=== PATIENT | male | born 1980 | race Caucasian/White ===

== ENCOUNTER 2023-10-20 06:54 | Outpatient (CLI) | payer OTHER, SELFPAY ==
--- NOTE | ~2023-10-20 | US_ITS ---
Limited Abdominal Sonogram: Real-time sonographic imaging of the right upper quadrant was performed. Clinical History: Cirrhosis Findings: The liver appears echogenic, with no evidence of mass lesion or bile duct dilatation. Main portal vein demonstrates normal direction of flow. The gallbladder is absent, compatible prior saeed cystectomy. The common bile duct measures 6 mm. The visualized pancreas, aorta, and IVC are unremark able. Impression: Diffuse fatty infiltration of liver. Status post cholecystectomy. Reviewed, dictated and finalized at location . Impression: Diffuse fatty infiltration of liver. Status post cholecystectomy.
== END 2023-10-20 06:55 | disposition home or self-care (01) ==
LOC: CHSIMG 06:59
PROVIDERS: PCP Family Medicine; Visit Provider Family Medicine
DX: K74.60 Unspecified cirrhosis of liver (principal); K76.0 Fatty (change of) liver, not elsewhere classified; Z90.49 Acquired absence of other specified parts of digestive tract
CPT/HCPCS: 76705

== ENCOUNTER 2024-07-15 10:07 | Emergency (ER) | payer OTHER, SELFPAY ==
[2024-07-15 10:12] VITALS: BP 133/75; PULSE 64; RESP 18; TEMP 36.5; O2SAT 100
[2024-07-15 11:04] LABS: Basophils Percent Auto 0.3 % (0.2-1.2); Eosinophils Absolute Auto 0.1 K/mm3 (0-0.3); Eosinophils Percent Auto 1.4 % (0-4.4); Hematocrit 45.4 % (42.0-52.0); Hemoglobin 14.5 g/dL (14.0-18.0); Immature Granulocyte Absolute 0.01 K/mm3 (0.00-0.031); Immature Granulocyte Percent A 0.1 % (0-0.5); Lymphocytes Absolute Auto 1.46 K/mm3 (0.9-3.2); Mean Corpuscular HGB Conc 31.9 g/dl (32-36); Mean Corpuscular Hemoglobin 28.2 pg (26-34); Mean Corpuscular Volume 88.2 fl (80-100); Mean Platelet Volume 9.9 fl (7.4-10.4); Monocytes Absolute Auto 0.5 K/mm3 (0.1-0.6); Monocytes Percent Auto 7.8 % (2.6-8.5); Neutrophils Absolute Auto 4.8 K/mm3 (1.3-6.7); Neutrophils Percent Auto 69.4 % (45.5-73.1); Platelet Count Result 226 k/mm3 (150-375); Red Blood Count 5.15 M/mm3 (4.6-6.20); Red Cell Distribution Width 13.4 % (11.5-14.5)
[2024-07-15 11:07] LABS: Add Urine Microscopic? NO; Appearance Urine Clear (Clear); Bilirubin Urine Negative (Negative); Blood Urine Negative (Negative); Color Urine Yellow (Yellow); Glucose Urine UA Negative (Negative); Ketones Urine Negative (Negative); Leukocyte Esterase Ur Negative LEU/UL (Negative); Nitrate Urine Negative (Negative); Protein Urine Negative (Negative); Specific Grav Ur 1.024 (1.001-1.035); Urobilinogen Urine 0.2 mg/dL (<2.0); pH Urine 5.5 (5.0-9.0)
[2024-07-15 11:16] LABS: Alanine Aminotransferase 29 U/L (6-50); Albumin Level 4.4 g/dL (3.5-5.1); Alkaline Phosphatase 66 U/L (38-126); Anion Gap 6 mmol/L (4-12); Aspartate Amino Transferase 40 U/L (17-59); Bilirubin,Total 0.8 mg/dL (0.2-1.3); Blood Urea Nitrogen 22 mg/dL (9-20); Calcium 9.1 mg/dL (8.4-10.2); Carbon Dioxide 29 mmol/L (22-30); Chloride 103 mmol/L (98-107); Estimated CRCL calculation 134 ml/min; Estimated Glomerular Filt Rate > 60; Glucose 97 mg/dL (65-110); Potassium 3.7 mmol/L (3.4-5.0); Sodium 138 mmol/L (137-145)
[2024-07-15 11:19] LABS: Acetaminophen < 10 ug/mL (10-30); Ethanol < 10 mg/dL (<10); Salicylate < 1.0 mg/dL (2-20)
--- NOTE | 2024-07-15 11:26 | ED.PSYCH ---
HPI - Psych General Chief Complaint: Psychiatric Symptoms <FELI Rutledge Last Filed: 07/15/24 16:31> Stated Complaint: S/I <FELI Rutledge Last Filed: 07/15/24 16:31> Time Seen by Provider: 07/15/24 10:26 <FELI Rutledge Last Filed: 07/15/24 16:31> Source: patient <FELI Rutledge Last Filed: 07/15/24 16:31> Mode of arrival: EMS <FELI Rutledge Last Filed: 07/15/24 16:31> Limitations: no limitations <FELI Rutledge Last Filed: 07/15/24 16:31> History of Present Illness HPI Narrative: Patient is a 44-year-old male who presents the ED via EMS with report of suicidal ideation. Patient reports he has been feeling increasingly suicidal over the last few weeks. States he feels like he has no robbie in his life. States he has no one to turn to, no one to talk to or get help from. He is currently homeless. He did sleep on someone's couch a couple of days ago and has since developed an itchy red rash to his arms and legs and trunk. He does report that he attempted to take his life a few months ago by overdosing on heart medication, but was not evaluated at a hospital at that time. He does not currently see a psychiatrist or counselor. Is not currently on any mental health medications. Denies SHELLIE AVVin. <FELI Rutledge Last Filed: 07/15/24 16:31> Related Data Allergies/Adverse Reactions: Allergies Allergy/AdvReac Type Severity Reaction Status Date / Time No Known Allergies Allergy Verified 07/15/24 10:09 <FELI Rutledge Last Filed: 07/15/24 16:31> Review of Systems Review of Systems: All systems reviewed & are unremarkable except as noted in HPI. <FELI Rutledge Last Filed: 07/15/24 16:31> All systems reviewed & are unremarkable except as noted in HPI and below <Lorena Rivera PA-C - Last Filed: 07/15/24 16:31> [facility] Social History Social History: Social History Substance use type: does not use <Lorena Rivera PA-C - Last Filed: 07/15/24 16:31> Exam Narrative: GENERAL: Mildly disheveled, non-toxic, in no acute distress. HEAD: Normocephalic, atraumatic. RESPIRATORY: Airway patent, respirations nonlabored. Clear to auscultation bilaterally, no rales, rhonchi, wheezing. CARDIOVASCULAR: Regular rate and rhythm without murmurs, rubs, or gallops. MUSCULOSKELETAL: Moves all extremities. No gross deformities. SKIN: Warm, dry, normal color. Diffuse NEURO: A&O X3. Speech clear. Cranial nerves II-XII grossly intact. Steady gait. No ataxic movements. PSYCHIATRIC: Flat affect, depressed mood. Normal interaction. <Lorena Rivera PA-C - Last Filed: 07/15/24 16:31> Course ULTRASOUND SONOGRAPHER/PA Physician Supervision JUAN discussed patient with me. Patient did not require me to order any medications while in the ED, he remained calm. Crisis/psych worked on placement and I know several facilities were calling regarding status of acceptance/bed availability. Based on conversation of assessment by the PA and as per protocol, FOID reporting performed. Patient stable for transportation to accepting facility. I otherwise was available for consultation while patient was in the emergency department but did not personally evaluate this patient directly other than seeing them from the door where they were calm, resting comfortably, and protecting their airway. <Sally Cheung MD - Last Filed: 07/16/24 11:33> Vital Signs Vital signs: Vital Signs Temperature 97.7 F 07/15/24 10:12 Pulse Rate 64 07/15/24 10:12 Respiratory Rate 18 07/15/24 10:12 Blood Pressure 133/75 07/15/24 10:12 Pulse Oximetry 100 07/15/24 10:12 Oxygen Delivery Room Air 07/15/24 10:12 Temperature 97.9 F 07/15/24 20:10 Pulse Rate 86 07/15/24 20:10 Respiratory Rate 16 07/15/24 20:10 Blood Pressure 137/79 07/15/24 20:10 Pulse Oximetry 98 07/15/24 20:10 Oxygen Delivery Room Air 07/15/24 10:12 <Lorena Rivera PA-C - Last Filed: 07/15/24 16:31> Vital Signs Temperature 97.7 F 07/15/24 10:12 Pulse Rate 64 07/15/24 10:12 Respiratory Rate 18 07/15/24 10:12 Blood Pressure 133/75 07/15/24 10:12 Pulse Oximetry 100 07/15/24 10:12 Oxygen Delivery Room Air 07/15/24 10:12 Temperature 97.9 F 07/15/24 20:10 Pulse Rate 86 07/15/24 20:10 Respiratory Rate 16 07/15/24 20:10 Blood Pressure 137/79 07/15/24 20:10 Pulse Oximetry 98 07/15/24 20:10 Oxygen Delivery Room Air 07/15/24 10:12 <aSlly Cheung MD - Last Filed: 07/16/24 11:33> MDM - Psych MDM Narrative Medical decision making narrative: Patient presented to ED with suicidal ideation. No current plan. History of suicide attempt in the past. Currently homeless. VSS. ED psych workup was initiated. Laboratory studies are unremarkable. Urine drug screen negative. Patient medically cleared to undergo psychiatric evaluation by crisis team for further disposition. Crisis evaluated patient and determined him to meet criteria for inpatient psychiatric placement. Patient under voluntary status. Awaiting bed placement. Patient received bed at [facility]. Patient is medically cleared for further transport and psychiatric admission. Has had no further issues in the ED. Calm and cooperative. In agreement with plan and transfer. <Lorena Rivera PA-C - Last Filed: 07/15/24 16:31> Medical Records Attestation: I reviewed the patient's medical records. <Lorena Rivera PA-C - Last Filed: 07/15/24 16:31> Lab Data Attestation: I reviewed the patient's lab results. <Lorena Rivera PA-C - Last Filed: 07/15/24 16:31> Result diagrams: 07/15/24 10:48 07/15/24 10:48 <Lorena Rivera PA-C - Last Filed: 07/15/24 16:31> Labs: Lab Results 07/15/24 Range/Units 10:48 WBC 7.0 (4.5-10.0) K/mm3 RBC 5.15 (4.6-6.20) M/mm3 Hgb 14.5 (14.0-18.0) g/dL Hct 45.4 (42.0-52.0) % MCV 88.2 (80-100) fl MCH 28.2 (26-34) pg MCHC 31.9 L (32-36) g/dl RDW 13.4 (11.5-14.5) % Plt Count 226 (150-375) k/mm3 MPV 9.9 (7.4-10.4) fl Immature Gran % (Auto) 0.1 (0-0.5) % Neut % (Auto) 69.4 (45.5-73.1) % Lymph % (Auto) 21.0 (18.3-44.2) % [place]yer % (Auto) 7.8 (2.6-8.5) % Eos % (Auto) 1.4 (0-4.4) % Baso % (Auto) 0.3 (0.2-1.2) % Lymph # (Auto) 1.46 (0.9-3.2) K/mm3 [place] # (Auto) 0.5 (0.1-0.6) K/mm3 Eos # (Auto) 0.1 (0-0.3) K/mm3 Baso # (Auto) 0.0 (0.0-0.1) K/mm3 Abs Immat Gran (auto) 0.01 (0.00-0.031) K/mm3 Absolute Neuts (auto) 4.8 (1.3-6.7) K/mm3 Absolute Nucleated RBC 0.000 (0.0-0.012) K/mm3 Nucleated RBC % 0.0 (0.0-0.2) % Sodium 138 (137-145) mmol/L Potassium 3.7 (3.4-5.0) mmol/L Chloride 103 (98-107) mmol/L Carbon Dioxide 29 (22-30) mmol/L Anion Gap 6 (4-12) mmol/L BUN 22 H (9-20) mg/dL Creatinine 0.62 L (0.7-1.3) mg/dL Estim Creat Clear Calc 134 ml/min Estimated GFR > 60 (59 - ) Glucose 97 (65-110) mg/dL Calcium 9.1 (8.4-10.2) mg/dL Total Bilirubin 0.8 (0.2-1.3) mg/dL AST 40 (17-59) U/L ALT 29 (6-50) U/L Alkaline Phosphatase 66 (38-126) U/L Total Protein 7.0 (6.3-8.2) g/dL Albumin 4.4 (3.5-5.1) g/dL TSH 1.090 (0.465-4.680) uIU/mL Urine Color Yellow (Yellow) Urine Appearance Clear (Clear) Urine pH 5.5 (5.0-9.0) Ur Specific [place] 1.024 (1.001-1.035) Urine Protein Negative (Negative) mg/dL Urine Glucose (UA) Negative (Negative) mg/dL Urine Ketones Negative (Negative) mg/dL Ur Blood (Man) Negative (Negative) Urine Nitrate Negative (Negative) Urine Bilirubin Negative (Negative) Urine Urobilinogen 0.2 (<2.0) mg/dL Leukocyte Esterase Rfl Negative (Negative) CLIFFORD/UL Salicylates < 1.0 L (2-20) mg/dL Urine Opiates Screen Negative (Negative) Urine Methadone Screen Negative (Negative) Acetaminophen < 10 L (10-30) ug/mL Ur Barbiturates Screen Negative (Negative) Ur Phencyclidine Scrn Negative (Negative) Ur Amphetamine Screen Negative (Negative) U Benzodiazepines Scrn Negative (Negative) Urine Cocaine Screen Negative (Negative) U Cannabinoids Screen Negative (Negative) Ethyl Alcohol < 10 (<10) mg/dL Influenza A (RT-PCR) Negative (Negative) Influenza B (RT-PCR) Negative (Negative) RSV (RT-PCR) Negative (Negative) SARS-CoV-2 RNA (RT-PCR) Negative (Negative) <Lorena Rivera PA-C - Last Filed: 07/15/24 16:31> Lab Results 07/15/24 Range/Units 10:48 WBC 7.0 (4.5-10.0) K/mm3 RBC 5.15 (4.6-6.20) M/mm3 Hgb 14.5 (14.0-18.0) g/dL Hct 45.4 (42.0-52.0) % MCV 88.2 (80-100) fl MCH 28.2 (26-34) pg MCHC 31.9 L (32-36) g/dl RDW 13.4 (11.5-14.5) % Plt Count 226 (150-375) k/mm3 MPV 9.9 (7.4-10.4) fl Immature Gran % (Auto) 0.1 (0-0.5) % Neut % (Auto) 69.4 (45.5-73.1) % Lymph % (Auto) 21.0 (18.3-44.2) % Dyer % (Auto) 7.8 (2.6-8.5) % Eos % (Auto) 1.4 (0-4.4) % Baso % (Auto) 0.3 (0.2-1.2) % Lymph # (Auto) 1.46 (0.9-3.2) K/mm3 [place]yer # (Auto) 0.5 (0.1-0.6) K/mm3 Eos # (Auto) 0.1 (0-0.3) K/mm3 Baso # (Auto) 0.0 (0.0-0.1) K/mm3 Abs Immat Gran (auto) 0.01 (0.00-0.031) K/mm3 Absolute Neuts (auto) 4.8 (1.3-6.7) K/mm3 Absolute Nucleated RBC 0.000 (0.0-0.012) K/mm3 Nucleated RBC % 0.0 (0.0-0.2) % Sodium 138 (137-145) mmol/L Potassium 3.7 (3.4-5.0) mmol/L Chloride 103 (98-107) mmol/L Carbon Dioxide 29 (22-30) mmol/L Anion Gap 6 (4-12) mmol/L BUN 22 H (9-20) mg/dL Creatinine 0.62 L (0.7-1.3) mg/dL Estim Creat Clear Calc 134 ml/min Estimated GFR > 60 (59 - ) Glucose 97 (65-110) mg/dL Calcium 9.1 (8.4-10.2) mg/dL Total Bilirubin 0.8 (0.2-1.3) mg/dL AST 40 (17-59) U/L ALT 29 (6-50) U/L Alkaline Phosphatase 66 (38-126) U/L Total Protein 7.0 (6.3-8.2) g/dL Albumin 4.4 (3.5-5.1) g/dL TSH 1.090 (0.465-4.680) uIU/mL Urine Color Yellow (Yellow) Urine Appearance Clear (Clear) Urine pH 5.5 (5.0-9.0) Ur Specific [place] 1.024 (1.001-1.035) Urine Protein Negative (Negative) mg/dL Urine Glucose (UA) Negative (Negative) mg/dL Urine Ketones Negative (Negative) mg/dL Ur Blood (Man) Negative (Negative) Urine Nitrate Negative (Negative) Urine Bilirubin Negative (Negative) Urine Urobilinogen 0.2 (<2.0) mg/dL Leukocyte Esterase Rfl Negative (Negative) CLIFFORD/UL Salicylates < 1.0 L (2-20) mg/dL Urine Opiates Screen Negative (Negative) Urine Methadone Screen Negative (Negative) Acetaminophen < 10 L (10-30) ug/mL Ur Barbiturates Screen Negative (Negative) Ur Phencyclidine Scrn Negative (Negative) Ur Amphetamine Screen Negative (Negative) U Benzodiazepines Scrn Negative (Negative) Urine Cocaine Screen Negative (Negative) U Cannabinoids Screen Negative (Negative) Ethyl Alcohol < 10 (<10) mg/dL Influenza A (RT-PCR) Negative (Negative) Influenza B (RT-PCR) Negative (Negative) RSV (RT-PCR) Negative (Negative) SARS-CoV-2 RNA (RT-PCR) Negative (Negative) <aSlly Cheung MD - Last Filed: 07/16/24 11:33> Discharge Plan Discharge Clinical Impression: Passive suicidal ideations, Homelessness <Lorena Rivera PA-C - Last Filed: 07/15/24 16:31> Patient Disposition: Psychiatric Hosp <Lorena Rivera PA-C - Last Filed: 07/15/24 16:31> Condition: Stable <Lorena Rivera PA-C - Last Filed: 07/15/24 16:31> Patient Language: Slovak <Lorena Rievra PA-C - Last Filed: 07/15/24 16:31> Follow-up/Referrals: Ruben,Jacqueline Bennett MD [Primary Care Provider] - <Lorena Rivera PA-C - Last Filed: 07/15/24 16:31>
[2024-07-15 11:40] LABS: Influenza A QL RT-PCR Negative (Negative); Influenza B QL RT-PCR Negative (Negative); RSV RNA, RT-PCR Negative (Negative); SARS-CoV-2 RNA PCR Negative (Negative)
[2024-07-15 12:19] LABS: Amphetamine Screen Urine Negative (Negative); Barbiturate Screen Urine Negative (Negative); Benzodiazepines Screen Urine Negative (Negative); Cannabinoid Screen Urine Negative (Negative); Cocaine Screen Urine Negative (Negative); Methadone Screen Urine Negative (Negative); Opiate Screen Urine Negative (Negative); Phencyclidine Screen Urine Negative (Negative)
--- NOTE | 2024-07-15 14:48 | PC.NURSE ---
Spoke with Spencer from [facility] for report for patient. They are speaking with patient at this time.
--- NOTE | 2024-07-15 15:12 | PC.NURSE ---
Spoke with Lilia from [facility] for report for patient. They state they will fax consents to be filled out and faxed back and then they will call with room assignments.
--- NOTE | 2024-07-15 15:48 | PC.NURSE ---
Information faxed to [facility]
--- NOTE | 2024-07-15 16:19 | PC.NURSE ---
Patient accepted to [facility] with bed assignment 9-B. Dr Soria is accepting physician.
--- NOTE | 2024-07-15 19:33 | PC.NURSE ---
report to Avis at [facility]
[2024-07-15 20:10] VITALS: BP 137/79; PULSE 86; RESP 16; TEMP 36.6; O2SAT 98
--- NOTE | 2024-07-15 20:12 | PC.NURSE ---
report called to tata cai. no questions at this time. Report given to [facility]. no distress noted.
== END 2024-07-15 20:13 ==
PROVIDERS: Emergency Provider Physician Assistant; PCP Family Medicine
DX: R45.851 Suicidal ideations (principal); Z59.00 Homelessness unspecified; Z11.59 Encounter for screening for other viral diseases
CPT/HCPCS: 36415; 80053; 80143; 80179; 80307; 81003; 82077; 84443; 85025; 87637; 99285

== ENCOUNTER 2025-01-06 21:59 | Emergency (ER) | payer OTHER, SELFPAY ==
[2025-01-06] VITALS (7 sets, daily range): BP systolic 109–120; BP diastolic 74–81; PULSE 79–99; RESP 12–21; TEMP 36.8; O2SAT 94–99
--- NOTE | ~2025-01-06 | CT_ITS ---
Non-contrast Head CT History: Altered mental status Technique: Axial non-contrast imaging of the brain was performed. Dose reduction technique was used on this scan by utilizing automated exposure control and iterative reconstruction technique. The dose -length product (DLP) was 832.33 mGy-cm. Findings: There is no evidence of intracranial hemorrhage, mass lesion, or acute infarct. Brain par enchyma appears normal. The ventricles and subarachnoid spaces are normal in size. The calvarium ap pears normal. Partially visualized left maxillary sinus disease is noted. Probable old blowout fractu re of the left lamina papyracea.. Impression: No intracranial abnormality seen. Old blowout fracture of the left lamina papyracea. Reviewed, dictated and finalized at location . Impression: No intracranial abnormality seen. Old blowout fracture of the left lamina papyracea.
--- OUTSIDE RECORDS SUMMARY | 2025-01-06 22:23 | XMS_ITS | Clinical Summary ---
Author Organization [facility] Address [facility] [address] [place] [address] Care Team Providers Care Photography Colorist Name Role Phone John Holland KEO Primary Care Provi perez Allergies No known active allergies Medications ARIPiprazole (ABILIFY) 15 MG tablet Take 1 tablet (15 mg total) by mouth daily. 11/25/2022 Active sertraline (ZOLOFT) 100 MG tablet Take 1.5 tablets (150 mg total) by mouth daily. 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/21/2022 History of dislocation of ankle 12/21/2022 Social History Tobacco Use Types Packs/Day Years Used Date Smoking Tobacco: Every Day Cigarettes Passive Smoke Exposure: Current Smokeless Tobacco: Never Tobacco Cessation:Ready to Q uit: Not Asked Alcohol Use Standard Drinks/Week Comments Not Currently 0 (1 standard drink = 0.6 oz pur e alcohol) Sex and Gender Information Value Date Recorded Sex Assigned at Not on file Legal Sex Male 7:15 AM CDT Gender Identity Not on file Sexual Orientation Not on file Last Filed Vital Signs Vital Sign Reading Time Taken Comments Blood Pressure 134/85 10/30/2021 9:33 AM CDT Pulse 93 10/30/2021 9:33 AM CDT Temperature 36.7 C (98 F) 10/30/2021 9:33 AM CDT Respiratory Rate 18 10/30/2021 9:33 AM CDT Oxygen Saturation 97% 10/30/2021 9:33 AM CDT Inhaled Oxygen Concentration - - Weight 108.4 kg (239 lb) 02/15/2023 9:00 AM CDT Height 177.8 cm (5' 10) 02/15/2023 9:00 AM CDT Body Mass Index 34.29 02/15/2023 9:00 AM CDT Plan of Treatment Health Maintenance Due Date Last Done Comments Annual Physical 1983 Hepatitis C 1998 Hepatitis B Vaccines (1 of 3 - 19+ 3-dose series) 1999 Pneumococcal Vaccine: Pediatrics (0 to 5 Years) and At-Risk Patients (6 to 49 Years) (1 of 2 - PCV) 1999 COVID-19 Vaccine (3 - 2023-2 5 season) 2024 10/05/2020, 09/07/2020 DTaP, Tdap and Td Vaccines ( 2 - Td or Tdap) 02/04/2028 02/03/2018 HPV Vaccines Aged Out No longer eligi ble based on patient's age to complete this topic Meningococcal B Vaccine Aged Out No l onger eligible based on patient's age to complete this topic Meningococcal Vaccine Aged Out No halley amna eligible based on patient's age to complete this topic RSV Immunizations Under 20 Months Aged Out No longer eligible b ased on patient's age to complete this topic Insurance [facility] Care Teams Photography Colorist Relationship Specialty Start Date End Date John Holland NP [address] [place] [id number] PCP - General Nurse Practitioner Family 12/21/22
--- OUTSIDE RECORDS SUMMARY | 2025-01-06 22:23 | XMS_ITS | Clinical Summary ---
Author Organization [facility] Address [address] [place] [address] Care Team Providers Care Claim Administrator Name Role Phone Pcp, Angelita Mg Primary Care-Im/Fm-Centrailia Primar y Care Provider Unavailable Source Comments [facility],non-owned Affiliates and Associated Physician Practices is amultiple site organization consisting of ambulatory clinics and hospital sitesin [place], [place], [place] and [place]. This disclosure is being madepursuant to the Care Everywhere program and may not contain all information available regarding this patient. Last updated 18.[facility] Allergies No known active allergies Medications * This document contains information received from the source organization and may not represent a complete record from that organization. * Be aware that medications may not be up to date on this document. Alwaysverify current medications with the patient. cephalexin (Keflex) 500 MG capsuleIndicat ions:Respirato ry Tract Infection Take 1 (one) capsule by mouth 3 times daily Reasons: Infection of the Respiratory Tract 30 capsule 025 Active mirtazapine (Remeron) 7.5 MG tabletIndicati ons:Major Depressive Disorder,Metha mphetamine Dependence Take 1 (one) tablet by mouth at bedtime Reasons: Major Depressive Disorder, Methamphetamine Dependence 30 tablet 025 Active cetirizine (ZyrTEC) 10 MG tablet Take 1 (one) tablet by mouth 2 times daily 60 tablet 025 Active doxycycline monohydrate 100 MG capsule Take 1 (one) capsule by mouth every 12 hours for 10 days 20 capsule 025 2024 Active QUEtiapine (SEROquel) 50 MG tablet Take 1 (one) tablet by mouth 2 times daily 60 tablet 2 022 2024 Discontinued(T x Complete) divalproex ER 24hr (Depakote ER) 500 MG tablet Take 1 (one) tablet by mouth at bedtime 30 tablet 2 022 2024 Discontinued(T x Complete) docusate sodium (Colace) 100 MG capsule Take 1 (one) capsule by mouth once daily 30 capsule 2 022 2024 Discontinued(T x Complete) polyethylene glycol (Golytely) 236 g solutionIndica tions:Preopera tive Bowel Evacuation As directed per instructions given to you. Reasons: Bowel Evacuation Before Surgery 4000 mL 022 2024 Discontinued(T x Complete) sulfamethoxazo le-trimethopri m (Bactrim DS; Septra DS) 800-160 MG tablet Take 1 (one) tablet by mouth 2 times daily for 7 days 14 tablet 025 2024 Additional Information Patient not taking.Reported on 12/17/2024 doxycycline monohydrate 100 MG tablet Take 1 (one) tablet by mouth 2 times daily for 10 days 20 tablet 025 2024 Discontinued(D ose Adjustment) cephalexin (Keflex) 500 MG capsuleIndicat ions:Infected hematoma Take 1 (one) capsule by mouth 3 times daily 30 capsule 025 2024 Discontinued HYDROcodone-ac etaminophen ([place]bury) 5-325 MG tabletIndicati ons:Infected hematoma Take 1 (one) tablet by mouth every 6 hours as needed for Pain 12 tablet 025 2024 Discontinued(T x Complete) doxycycline monohydrate 100 MG capsuleIndicat ions:Respirato ry Tract Infection Take 1 (one) capsule by mouth every 12 hours for 5 days Reasons: Infection of the Respiratory Tract 10 capsule 025 2024 doxycycline monohydrate 100 MG capsule Take 1 (one) capsule by mouth every 12 hours for 10 days 20 capsule 025 2024 Discontinued permethrin (Elimite) 5 % cream Apply to affected area once for 1 dose 60 g 025 2024 Discontinued(T x Complete) cetirizine (ZyrTEC) 10 MG tablet Take 1 (one) tablet by mouth 2 times daily 60 tablet 025 2024 Discontinued Active Problems Problem Noted Date Diagnosed Date Severe episode of recurrent major depressive disorder, without psychotic features 12/22/2024 Methamphetamine use disorder, severe 12/22/2024 Other cirrhosis of liver 01/18/2022 History of hepatitis C 01/18/2022 Intentional drug overdose 10/04/2018 Abdominal pain, epigastric 08/27/2018 Calculus of gallbladder with acute cholecystitis without obstruction 08/27/2018 Resolved Problems Problem Noted Date Diagnosed Date Resolved Date Depression, unspecified depression type 12/21/2024 12/22/2024 Suicidal ideation 10/04/2018 12/22/2024 Encounters * This document contains information received from the source organization and may not represent a complete record from that organization. Date Type Department Care Team Description 01/02/2025 10:46 AM CDT - 01/02/2025 1:30 PM CDT Emergency [facility] - Emergency Department [address] [place] [address] Markie Estevez, AUDITING CODER-ASSISTANT PROFESSOR OF SPANISH Dehydration; Hypokalemia Discharge Disposition: Home or Self Care 01/02/2025 10:15 AM CDT - 01/02/2025 10:45 AM CDT Hospital Encounter [facility] - Ambulance [address] [place] [address] Markie Estevez, AUDITING CODER-ASSISTANT PROFESSOR OF SPANISH Discharge Disposition: Home or Self Care 01/02/2025 Travel 12/27/2024 Transitional Care [facility] - Care Coordination [address] [place] [address] Heidi Daniels RN Transitional Care 12/21/2024 Travel 12/19/2024 4:53 PM CDT - 12/19/2024 5:15 PM CDT Emergency ER at [address] [id number] Garfield Carpenter MD Dizziness; Heat exposure, initial encounter Discharge Disposition: Left Against Medical Advice/Discontinued Care 12/19/2024 Travel 12/17/2024 10:30 AM CDT Office Visit [facility] [address] [place] [address] Infected hematoma (Primary Dx) 12/17/2024 Travel 12/13/2024 2:15 PM CDT Office Visit [facility] [address] [place] [address] Cellulitis of right index finger (Primary Dx) 12/13/2024 2:10 PM CDT Ancillary Procedure [facility] [address] [place] [address] Jenise Magana APRN-GRISEL Cellulitis of right index finger 12/13/2024 Travel 12/09/2024 2:20 AM CDT - 12/09/2024 2:42 AM CDT Emergency ER at [address] [address] Sharla Escobar MD Cellulitis of left index finger (Primary Dx) Discharge Disposition: Home or Self Care 12/09/2024 Travel from Last 3 Months Immunizations Immunization Administration Dates Next Due TDAP (7yrs+) 12/17/2024,02/03/2018 Family History Medical History Relation Name Comments Cancer Brother Relation Name Status Comments Brother Social History Tobacco Use Types Packs/Day Years Used Date Smoking Tobacco: Former Cigarettes 1 25 Smokeless Tobacco: Never Comments:2 cigarettes daily - wants to quit Alcohol Use Standard Drinks/Week Comments Not Currently 0 (1 standard drink = 0.6 oz pur e alcohol) AUDIT-C Answer Date Recorded Q1: How often do you have a drink containing alc ohol? Monthly or less 12/21/2024 Q2: How many drinks containi ng alcohol do you have on a typical day when you are drinking? 10 or more 12/21/2024 Q3: How often do you have si x or more drinks on one occasion? Less than monthly 12/21/2024 Overall Financial Resource Strain (CARDIA) Answe r Date Recorded How hard is it for you to pa y for the very basics like food, housing, medical care, and heating? Very hard 12/21/2024 PHQ-2 Answer Date Recorded Patient Health Questionnaire-2 Score 1 12/21/2024 [facility] [place] [facility] Occupat ional Health - Occupational Stress Questionnaire Answer Date Recorded Do you feel stress - tense, restless, nervous, or anxious, or unable to sleep at night because your mind is troubled all the time - these days? Very much 12/21/2024 Hunger Vital Sign Answer Date Recorded Within the past 12 months, y ou worried that your food would run out before you got the money to buy more. Often true 12/22/19 25 Within the past 12 months, t he food you bought just didn't last and you didn't have money to get more. Often true 12/21/2024 PRAPARE - Transportation Answer Date Re corded In the past 12 months, has l ack of transportation kept you from medical appointments or from getting medications? Yes 12/02 In the past 12 months, has l ack of transportation kept you from meetings, work, or from getting things needed for daily living? Yes 12/21/2024 Housing Stability Vital Sign Answer Don e Recorded In the last 12 months, was t here a time when you were not able to pay the mortgage or rent on time? No 12/21/2024 In the past 12 months, how m any times have you moved where you were living? 0 12/21/2024 At any time in the past 12 m [facility] were you homeless or living in a [place] (including now)? Yes 12/21/2024 Sex and Gender Information Value Date Recorded Sex Assigned at Not on file Legal Sex Male 11:23 AM [employer] Gender Identity Not on file Sexual Orientation Not on file Last Filed Vital Signs Vital Sign Reading Time Taken Comments Blood Pressure 131/79 01/02/2025 12:36 PM CDT Pulse 89 01/02/2025 12:36 PM CDT Temperature 37.1 C (98.7 F) 01/02/2025 12:36 PM CDT Respiratory Rate 16 01/02/2025 12:36 PM CDT Oxygen Saturation 95% 01/02/2025 12:36 PM CDT Inhaled Oxygen Concentration 21% 08/28/2018 9 :00 PM [employer] Weight 72.6 kg (160 lb) 01/02/2025 10:49 AM CDT Height 177.8 cm (5' 10) 01/02/2025 10:49 AM CDT Body Mass Index 22.96 01/02/2025 10:49 AM CDT Plan of Treatment Health Maintenance Due Date Last Done Comments HIV SCREENING 1995 HEPATITIS B VACCINE (1 of 3 - 19+ 3-dose series) 1999 PNEUMOCOCCAL VACCINE (1 of 2 - PCV) 1999 LIPID TESTING 10/07/2023 10/06/2018 COVID-19 VACCINE (3 - 2023- season) 2024 10/05/2020, 09/07/2020 INFLUENZA VACCINE (#1) 2025 ZOSTER VACCINE (1 of 2) 2030 DTAP/TDAP/TD VACCINES (3 - Td or Tdap) 12/17/2034 12/17/2024, 02/03/2018 HEPATITIS C SCREENING Completed 03/25/2022 , 03/23/2022, 01/18/2022, Additional history exists DEPRESSION SCREENING Completed 12/13/2024, 12/02/19 22 HIB VACCINE Aged Out No longer eligi ble based on patient's age to complete this topic HPV VACCINE Aged Out No longer eligi ble based on patient's age to complete this topic MENINGOCOCCAL (Group B) VACCINE SHARED DECISION-MAKING Aged Out No longer eligible based on patient's age to complete this topic MENINGOCOCCAL GROUPS A/C/Y/W VACCINE Aged Out No longer eligible based on patient's age to complete this topic Procedures Procedure Name Priority Date/Time Associated Diagnosis Comments DRUG ABUSE URINE PANEL Routine 11:24 AM CDT URINALYSIS W/MICROSCOPIC REFLEX TO CULTURE STAT 01/02/2025 11:24 AM CDT CK BLOOD STAT 01/02/2025 10:32 AM CDT ALCOHOL ETHYL BLOOD STAT 01/02/2025 1 0:32 AM CDT SALICYLATE LEVEL BLOOD STAT 10:32 AM CDT ACETAMINOPHEN LEVEL STAT 01/02/2025 1 0:32 AM CDT TSH REFLEX FREE T4 STAT 01/02/2025 10 :32 AM CDT MAGNESIUM BLOOD STAT 01/02/2025 10:32 AM CDT COMPREHENSIVE METABOLIC PANEL STAT 01/02/2025 10:32 AM CDT CBC W AUTO DIFFERENTIAL STAT 01/02/2025 10:32 AM CDT EKG 12-LEAD Routine 12/22/2024 1:26 PM CDT Methamphetamine abuse (HCC) URINALYSIS REFLEX MICROSCOPIC REFLEX CULTURE STAT 12/21/2024 5:05 PM CDT TSH REFLEX FREE T4 STAT 12/21/2024 5: 05 PM CDT SALICYLATE LEVEL BLOOD STAT 5:05 PM CDT DRUG ABUSE URINE SCREEN 10 STAT 12/21/2024 5:05 PM CDT COMPREHENSIVE METABOLIC PANEL STAT 12/21/2024 5:05 PM CDT CBC W AUTO DIFFERENTIAL STAT 12/21/2024 5:05 PM CDT ALCOHOL ETHYL BLOOD STAT 12/21/2024 5 :05 PM CDT ACETAMINOPHEN LEVEL STAT 12/21/2024 5 :05 PM CDT EKG 12-LEAD STAT 12/19/2024 6:21 PM CDT Dizziness XR FINGERS RIGHT 2VW OR MORE STAT 12/13/2024 2:13 PM CDT Cellulitis of right index finger HEPATITIS C RNA QUANT REFLX GENOTYPE Routine 12/01/2021 4:15 PM CDT History of hepatitis C LIPID PROFILE Routine 10/06/2018 6:19 AM CDT from Last 3 Months or Most Recently Relevant to Health Maintenance Results * (ABNORMAL) URINALYSIS W/MICROSCOPIC REFLEX TO CULTURE (01/02/2025 11:24 AM CDT) Color UA Yellow 01/02/2025 11:44 AM T [facility] Characteristic UA Clear 025 11:44 AM [facility] ([facility]) Specific [place] UA 1.020 1.002 - 1.030 01/02/2025 11:44 AM [facility] pH UA 5.5 4.6 - 8.0 01/02/2025 11:44 AM T [facility] Protein UA Negative Negative 01/02/2025 11:44 AM [facility] Glucose UA Negative Negative 01/02/2025 11:44 AM [facility] Ketone ua Negative Negative 01/02/2025 11:44 AM [facility] Bilirubin UA Negative Negative 01/02/2025 11:44 AM [facility] ([facility]) Blood UA Negative Negative 01/02/2025 11:44 AM [facility] Urobilinogen UA 0.2 0.2 - 1.0 E.U./dL 01/02/2025 11:44 AM [facility] ([facility]) Leukocyte Esterase Negative Negative 2024 11:44 AM [facility] WBC Urine 3-5 None, 0-1, 1-3, 3-5 /hpf 01/02/2025 11:44 AM [facility] RBC Urine 0-1(A) None /hpf 01/02/2025 11:44 AM [facility] Epithelial UA 1-3(A) None 01/02/2025 11:44 AM T [facility] Bacteria UA 1+(A) None 01/02/2025 11:44 AM [facility] Mucus UA 2+(A) None 01/02/2025 11:44 AM [facility] Amorphous UA 01/02/2025 11:44 AM [facility] Nitrite UA Negative Negative 01/02/2025 11:44 AM CDT [facility] Crystals UA 01/02/2025 11:44 AM CDT [facility] Casts UA 01/02/2025 11:44 AM CDT [facility] Urine URINE SPECIMEN OBTAINED BY CLEAN CATCH PROCEDURE / Unknown Collection / Unknown 01/02/2025 11:24 AM CDT 01/02/2025 11:32 AM CDT Markie Estevez AUDITING CODER-ASSISTANT PROFESSOR OF SPANISH LAB - URINALYSIS ORDER ANJANA Final Result [facility] [address] [place] [address] * (ABNORMAL) DRUG ABUSE URINE PANEL (01/02/2025 11:24 AM CDT) Amphetamines Screen Urine Negative Negative 01/02/2025 11:46 AM CDT [facility] Barbiturates Screen Urine Negative Negative 01/02/2025 11:46 AM CDT [facility] Benzodiazepines Screen Urine Negative Negative 01/02/2025 11:46 AM CDT [facility] Buprenorphine Screen Urine Negative Negative 01/02/2025 11:46 AM CDT [facility] Cocaine Screen Urine Negative Negative 01/02/2025 11:46 AM CDT [facility] Methamphetamine Screen Urine Negative Negative 01/02/2025 11:46 AM CDT [facility] Methadone Screen Urine Negative Negative 01/02/2025 11:46 AM CDT [facility] Opiate Screen Urine Negative Negative 01/02/2025 11:46 AM CDT [facility] Oxycodine Screen Urine Negative Negative 01/02/2025 11:46 AM CDT [facility] Phencyclidine Screen Urine Negative Negative 01/02/2025 11:46 AM CDT [facility] Cannabinoids Screen Urine Positive(A) Negative 01/02/2025 11:46 AM CDT [facility] Tricyclics Screen Urine Negative Negative 01/02/2025 11:46 AM CDT [facility] Urine URINE / Unknown Collection / Unknown 01/02/2025 11:24 AM CDT 01/02/2025 11:31 AM CDT Narrative [facility] - 01/02/2025 11:46 AM CDT Drug Cutoff Values: AMP (Amphetamine) 500 ng/mL BAR (Barbiturates) 200 ng/mL BZO (Benzodiazepine) 150 ng/mL BUP (Buprenorphine) 10 ng/mL STEFAN (Cocaine) 150 ng/mL MAMP (Methamphetamine) 500 ng/mL MTD (Methadone) 200 ng/mL OPI (Opiates) 100 ng/mL OXY (Oxycodone) 100 ng/mL PCP (Phencyclidine) 25 ng/mL THC (Cannabinoids) 50 ng/mL TCA (Tricyclic Antidepressants) 300 ng/mL The results of this screening test are unconfirmed and should not be used for non-medical purposes. All presumptive positive results can be sent to our reference lab for confirmation upon request. Markie Estevez AUDITING [facility] - URINE CHEMISTRY ORDERABLES Final Result Performing Organization Address [facility] Co de Phone Number [facility] ([facility]) [address] [place] [phone] * TSH REFLEX FREE T4 (01/02/2025 10:32 AM CDT) Only the most recent of2 resultswithin the time period is included. TSH 0.745 0.470 - 4.680 mIU/L 01/02/2025 11:51 AM CDT [facility] Comment:Biotin levels higher than the recommended daily dose may cause interference with test results Blood BLOOD SPECIMEN / Unknown Lab Venipuncture / Unknown 01/02/2025 10:32 AM CDT 01/02/2025 11:11 AM CDT Markie Estevez AUDITING [facility] - CHEMISTRY ORDERA BLES Final Result Performing Organization Address [facility]/ZIP Co de Phone Number [facility] [address] [place] [phone] * (ABNORMAL) CBC W AUTO DIFFERENTIAL (01/02/2025 10:32 AM CDT) Only the most recent of2 resultswithin the time period is included. WBC 4.4 4.2 - 10.2 K/uL 01/02/2025 11:20 AM CDT [facility] RBC 4.38 4.02 - 5.42 M/uL 01/02/2025 11:20 AM CDT [facility] Hemoglobin 12.6 11.6 - 16.0 g/dL 01/02/2025 11:20 AM T [facility] Hematocrit 38.4(L) 39.0 - 51.0 % 01/02/2025 11:20 AM T [facility] Platelet Count 177 134 - 380 K/uL 01/02/2025 11:20 AM T [facility] MCV 87.7 83.9 - 97.9 fl 01/02/2025 11:20 AM CDT [facility] MCH 28.8(L) 29.4 - 33.4 pg 01/02/2025 11:20 AM T [facility] ([facility]) MCHC 32.8 32.6 - 36.6 g/dL 01/02/2025 11:20 AM T [facility] RDW 13.2 11.4 - 15.4 % 01/02/2025 11:20 AM T [facility] Neutrophils % 63.4 47.0 - 67.0 % 01/02/2025 11:20 AM CDT [facility] Lymphocytes % 17.9(L) 21.0 - 41.0 % 01/02/2025 11:20 AM CDT [facility] Monocytes % 15.2(H) 1.8 - 12.8 % 01/02/2025 11:20 AM CDT [facility] Eosinophils % 2.8 0.1 - 5.1 % 01/02/2025 11:20 AM CDT [facility] Basophils % 0.7 0.0 - 1.6 % 01/02/2025 11:20 AM CDT [facility] Neutrophils Absolute 2.8(L) 2.9 - 6.8 x10(9)/L 01/02/2025 11:20 AM T [facility] Immature Granulocytes % 0.00 0.00 - 0.43 % 01/02/2025 11:20 AM [facility] Blood BLOOD SPECIMEN / Unknown Lab Venipuncture / Unknown 01/02/2025 10:32 AM CDT 01/02/2025 11:11 AM CDT Markie Estevez AUDITING CODER-ASSISTANT PROFESSOR [employer] LAB - HEMATOLOGY ORDER ANJANA Final Result [facility] ([facility]) [address] [place] [address] * (ABNORMAL) COMPREHENSIVE METABOLIC PANEL (01/02/2025 10:32 AM CDT) Only the most recent of2 resultswithin the time period is included. Glucose 108(H) 70 - 100 mg/dL 01/02/2025 11:20 AM T [facility] BUN 19 9 - 20 mg/dL 01/02/2025 11:20 AM [facility] Creatinine 0.90 0.66 - 1.25 mg/dL 01/02/2025 11:20 AM [facility] Sodium 134(L) 137 - 145 mmol/L 01/02/2025 11:20 AM [facility] Potassium 3.3(L) 3.5 - 5.1 mmol/L 01/02/2025 11:20 AM [facility] Chloride 101 98 - 107 mmol/L 01/02/2025 11:20 AM [facility] CO2 26 22 - 30 mmol/L 01/02/2025 11:20 AM [facility] Bilirubin Total 0.8 0.2 - 1.3 mg/dL 01/02/2025 11:20 AM [facility] Calcium 9.2 8.4 - 10.2 mg/dL 01/02/2025 11:20 AM [facility] ([facility]) Protein Total 7.0 6.3 - 8.2 g/dL 01/02/2025 11:20 AM [facility] ([facility]) Albumin 4.2 3.5 - 5.0 g/dL 01/02/2025 11:20 AM [facility] AST 41 17 - 59 U/L 01/02/2025 11:20 AM [facility] ([facility]) ALT 22 0 - 50 U/L 01/02/2025 11:20 AM [facility] ([facility]) Alkaline Phosphatase 79 38 - 126 U/L 01/02/2025 11:20 AM [facility] ([facility]) Globulin Total 2.8 2.3 - 4.2 gm/dL 01/02/2025 11:20 AM [facility] ([facility]) Albumin/Globulin Ratio 1.5 1.0 - 2.2 Ratio 01/02/2025 11:20 AM [facility] ([facility]) eGFR >60 >60 mL/min/1.7 3 m2 01/02/2025 11:20 AM [facility] ([facility]) Blood BLOOD SPECIMEN / Unknown Lab Venipuncture / Unknown 01/02/2025 10:32 AM CDT 01/02/2025 11:11 AM [facility] ([facility]) - 01/02/2025 11:20 AM [facility] It is recommended that for: GFR values greater than 60 mL/min/1.73 sq.meters - no additional renal evaluation is required. GFR values less than 60 mL/min/1.73 sq.meters - complete evaluation for renal disease. GFR values less than 30 mL/min/1.73 sq.meters - consultation with a Business Services Clerk. The GFR result was calculated using the MDRD Equation. Markie Estevez AUDITING CODER-ASSISTANT PROFESSOR [employer] LAB - CHEMISTRY ORDERA BLES Final Result [facility] ([facility]) [address] [place] [phone] * MAGNESIUM BLOOD (01/02/2025 10:32 AM CDT) Magnesium 2.10 1.60 - 2.30 mg/dL 01/02/2025 11:21 AM CDT [facility] Blood BLOOD SPECIMEN / Unknown Lab Venipuncture / Unknown 01/02/2025 10:32 AM CDT 01/02/2025 11:11 AM CDT us Markie Estevez AUDITING CODER-ASSISTANT PROFESSOR [employer] LAB - CHEMISTRY ORDERA BLES Final Result [facility] [address] [place] [phone] * (ABNORMAL) CK BLOOD (01/02/2025 10:32 AM CDT) CK 334(H) 55 - 135 U/L 01/02/2025 11:21 AM CDT [facility] Blood BLOOD SPECIMEN / Unknown Lab Venipuncture / Unknown 01/02/2025 10:32 AM CDT 01/02/2025 11:11 AM CDT us Markie Estevez AUDITING CODER-ASSISTANT PROFESSOR [employer]ISH LAB - CHEMISTRY ORDERA BLES Final Result [facility] [address] [place] [id number] * ALCOHOL ETHYL BLOOD (01/02/2025 10:32 AM CDT) Only the most recent of2 resultswithin the time period is included. Ethanol <10.0 0 - 50 mg/dL 01/02/2025 11:21 AM CDT [facility] Blood BLOOD SPECIMEN / Unknown Lab Venipuncture / Unknown 01/02/2025 10:32 AM CDT 01/02/2025 11:11 AM CDT us Markie Estevez [facility] - CHEMISTRY ORDERA BLES Final Result [facility] [address] [place] [phone] * (ABNORMAL) SALICYLATE LEVEL BLOOD (01/02/2025 10:32 AM CDT) Only the most recent of2 resultswithin the time period is included. Salicylate <1.0(L) 2.0 - 20.0 mg/dL 01/02/2025 11:21 AM CDT [facility] Blood BLOOD SPECIMEN / Unknown Lab Venipuncture / Unknown 01/02/2025 10:32 AM CDT 01/02/2025 11:11 AM CDT Markie Estevez [facility] - CHEMISTRY ORDERA BLES Final Result Performing Organization Address [facility] Co de Phone Number [facility]) [address] [place] [phone] * (ABNORMAL) ACETAMINOPHEN LEVEL (01/02/2025 10:32 AM CDT) Only the most recent of2 resultswithin the time period is included. Acetaminophen <10.0(L) 10.0 - 30.0 ug/mL 01/02/2025 11:21 AM CDT [facility] Blood BLOOD SPECIMEN / Unknown Lab Venipuncture / Unknown 01/02/2025 10:32 AM CDT 01/02/2025 11:11 AM CDT Markie Estevez [facility] - CHEMISTRY ORDERA BLES Final Result Performing Organization Address City/[facility]/ZIP Co de Phone Number [facility] ([facility]) [address] [place] [phone] * EKG 12-LEAD (12/22/2024 1:26 PM CDT) Ventricular Rate 51 BPM [facility] Atrial Rate 51 BPM [facility] P-R Interval 150 ms [facility] QRS Duration ms 94 ms [facility] Q-T Interval ms 416 ms [facility] MUSE QTC Calculation (Bezet) 383 ms [facility] MUSE Calculated P [place] 54 degrees [facility] Calculated R [place] -2 degrees [facility] Calculated T [place] 25 degrees [facility] Interpretation EKG SINUS BRADYCARDIA OTHERWISE NORMAL ECG Confirmed by MD NOEMÍ, [facility] ([id number]) on 12/22/2024 6:54:31 PM [facility] 12/22/2024 1:26 PM CDT 12/22/2024 6:54 PM CDT Huma Lewis AUDITING CODER-[employer]SISTANT PROFESSOR [employer] ECG ORDERABLES Edited Result - Final [facility] * (ABNORMAL) DRUG ABUSE URINE SCREEN 10 (12/21/2024 5:05 PM CDT) Pathologist [facility] Amphetamines Screen Urine Negative Negative 12/21/2024 5:26 PM CDT [facility] Barbiturates Screen Urine Negative Negative 12/21/2024 5:26 PM CDT [facility] Benzodiazepines Screen Urine Negative Negative 12/21/2024 5:26 PM CDT [facility] Cannabinoids Screen Urine Positive(A) Negative 12/21/2024 5:26 PM CDT [facility] Cocaine Screen Urine Negative Negative 12/21/2024 5:26 PM CDT [facility] Methadone Screen Urine Negative Negative 12/21/2024 5:26 PM CDT [facility] Opiate Screen Urine Negative Negative 12/21/2024 5:26 PM CDT [facility] Phencyclidine Screen Urine Negative Negative 12/21/2024 5:26 PM CDT [facility] Tricyclics Screen Urine Negative Negative 12/21/2024 5:26 PM CDT [facility] Methamphetamine Screen Urine Positive(A) Negative 12/21/2024 5:26 PM CDT [facility] Buprenorphine Screen Urine Negative Negative 12/21/2024 5:26 PM CDT [facility] Oxycodone Screen Urine Negative Negative 12/21/2024 5:26 PM CDT [facility] Urine URINE / Unknown Collection / Unknown 12/21/2024 5:05 PM CDT 12/21/2024 5:06 PM CDT Narrative [facility] - 12/21/2024 5:26 PM CDT This is a presumptive/unconfirmed test for medical treatment purposes only. Clinical consideration and professional judgment should be applied when using presumptive results. If confirmatory testing, such as gas chromatography-mass spectrometry (GC/MS), of any positive results of this test is required, please notify the laboratory within 7 days of collection. This test is intended only for monitoring or management of patients. It is not intended for use in job-related and/or legal-related purposes. The cutoff value for each analyte is: Barbiturates.....200 ng/mL Benzodiazepines......150 ng/mL Cocaine..........150 ng/mL Opiates..............100 ng/mL Phencyclidine.....25 ng/mL Tricyclics...........300 ng/mL Cannabinoid.......50 ng/mL Amphetamines.........500 ng/mL Methadone........200 ng/mL Methamphetamines.....500 ng/mL Buprenorphine.....10 ng/mL Oxycodone............100 ng/mL Garfield Carpenter MD LAB - URINE CHEMISTRY ORDERABLES Final Result Performing Organization Address [facility]/State/[facility] Co de Phone Number [facility] [address] * (ABNORMAL) URINALYSIS REFLEX MICROSCOPIC REFLEX CULTURE (12/21/2024 5:05 PM CDT) Color UA Yellow Yellow, Straw 12/21/2024 5:21 PM CDT [facility] Clarity UA Clear Clear 12/21/2024 5:21 PM CDT [facility] Glucose UA Negative Negative 12/21/2024 5:21 PM CDT [facility] Bilirubin UA 1+(A) Negative 12/21/2024 5:21 PM CDT [facility] Ketone UA 1+(A) Negative 12/21/2024 5:21 PM CDT [facility] Specific [place] UA 1.036(H) 1.005 - 1.030 12/21/2024 5:21 PM CDT [facility] Blood UA Negative Negative 12/21/2024 5:21 PM CDT [facility] pH UA 6.0 5.0 - 8.0 12/21/2024 5:21 PM CDT [facility] Protein UA Trace(A) Negative 12/21/2024 5:21 PM CDT [facility] Urobilinogen UA 3.0(A) Normal mg/dL 12/21/2024 5:21 PM CDT [facility] Nitrite UA Negative Negative 12/21/2024 5:21 PM CDT [facility] Leukocyte Esterase UA Negative Negative 12/21/2024 5:21 PM CDT [facility] Urine Microscopy Urine microscopy not indicated 12/21/2024 5:21 PM CDT [facility] Urine URINE SPECIMEN OBTAINED BY CLEAN CATCH PROCEDURE / Unknown Collection / Unknown 12/21/2024 5:05 PM CDT 12/21/2024 5:06 PM CDT Garfield Carpenter MD LAB - URINALYSIS ORDERABLES Rose akbar Result Performing Organization Address City/[facility] Co de Phone Number [facility] [address] * XR Fingers Right 2Vw or More (12/13/2024 2:13 PM CDT) Anatomical Region Laterality Modality Upper Extremity, Wrist / Hand Co mputed Radiography 12/13/2024 3:44 PM CDT Impressions 12/13/2024 3:45 PM CDT IMPRESSION: Sausagelike soft tissue swelling but no bony or joint space destruction > Interpreting Provider: Fco Estrada MD on 12/13/2024 3:45 PM Narrative 12/13/2024 3:45 PM CDT PROCEDURE: XR FINGERS RIGHT 2VW OR MORE DATE/TIME OF EXAM: 12/13/2024 2:13 PM CLINICAL INFORMATION: None relevant/not provided if blank. Indication: L03.011: Cellulitis of right index finger Additional History: Scratched finger in a board. Second digit is hot and swollen COMPARISON: 02/03/2018 FINDINGS: Sausagelike swelling to the second digit with the majority the soft tissue swelling proximally. There is no bone or joint space struck process. No opaque density foreign body identified. No chip avulsion. Procedure Note Fco Estrada MD - 12/13/2024 PROCEDURE: XR FINGERS RIGHT 2VW OR MORE DATE/TIME OF EXAM: 12/13/2024 2:13 PM CLINICAL INFORMATION: None relevant/not provided if blank. Indication: L03.011: Cellulitis of right index finger Additional History: Scratched finger in a board. Second digit is hot and swollen COMPARISON: 02/03/2018 FINDINGS: Sausagelike swelling to the second digit with the majority the softtissue swelling proximally. There is no bone or joint space struck process. No opaque density foreign body identified. No chip avulsion. IMPRESSION: Sausagelike soft tissue swelling but no bony or joint space destruction > Interpreting Provider: Fco Estrada MD on 12/13/2024 3:45 PM [facility] AUDITING CODER-ASSISTANT PROFESSOR OF SPANISH DIAGNOSTIC IMAGING [facility] Final Result * HEPATITIS C RNA QUANT REFLX GENOTYPE (12/01/2021 4:15 PM CDT) HCV Quant by NAAT (IU/mL) Not Detected IU/mL 12/04/2021 2:59 AM CDT [facility] ([facility] HCV Quant by NAAT (log IU/mL) Not Detected log IU/mL 12/04/2021 2:59 AM CDT [facility] ([facility]) Comment: Hepatitis C Virus (HCV) by Quantitative TMA result was less than 4,000 IU/mL (3.6 log IU/mL); therefore no further testing added. HCV Quant by NAAT Interp Not Detected Not Detected 12/04/2021 2:59 AM CDT [facility] ([facility]) Comment: INTERPRETIVE INFORMATION: HCV by Quantitative NAAT Normal range for this assay is Not Detected. The quantitative range of this assay is 10 - 100,000,000 IU/mL (1.0 - 8.0 log IU/mL). Lower limit of quantitation (LLoQ): 10 IU/mL (1.0 log IU/mL) LLoQ values do not apply to diluted specimens. A result of Not Detected does not rule out the presence of inhibitors in the patient specimen or hepatitis C virus RNA concentrations below the level of detection of the test. Care should be taken when interpreting any single viral load determination. This test should not be used for blood donor screening, associated re-entry protocols, or for screening Human Cell, Tissues and Cellular Tissue-Based Products (HCT/P). Performed by [facility], [address] [place] [address] [email or web address], Tina Mcclellan MD, Lab. Director Blood BLOOD SPECIMEN / Unknown Venipuncture / Unknown 12/01/2021 4:15 PM CDT 12/01/2021 4:15 PM CDT us Kinsey Conley MD LAB - CHEMISTRY ORDERAB LES Final Result [facility] ([facility]) [address] [place] [address], [facility] * LIPID PROFILE (10/06/2018 6:19 AM CDT) Cholesterol 139 <200 mg/dL 10/06/2018 7:18 AM CDT [facility] Triglycerides 66 <150 mg/dL 10/06/2018 7:18 AM CDT [facility] HDL Cholesterol 47 >40 mg/dL 9 7:18 AM CDT [facility] Chol HDL Ratio 3.0 1.0 - 6.0 10/06/2018 7:18 AM CDT [facility] LDL Calculated 79 65 - 130 mg/dL 10/06/2018 7:18 AM T [facility] VLDL Calculated 13 10 - 40 mg/dL 10/06/2018 7:18 AM CDT [facility] Blood BLOOD SPECIMEN / Unknown Lab Venipuncture / Unknown 10/06/2018 6:19 AM CDT 10/06/2018 6:40 AM CDT Narrative [facility] - 10/06/2018 7:18 AM CDT Lipid Profile Comment: CHOLESTEROL LEVEL..................CLINICAL INTERPRETATION LESS THAN 200 MG/DL..............................DESIRABLE 200-239 MG/DL..............................BORDERLINE HIGH GREATER THAN 240 MG/DL................................HIGH LDL-CHOLESTEROL LEVEL..............CLINICAL INTERPRETATION LESS THAN 100 MG/DL................................OPTIMAL 100-129 MG/DL.................................NEAR OPTIMAL GREATER THAN 160 MG/DL...........................HIGH RISK HDL RISK LEVEL GREATER THEN 60 MG/DL............................DECREASED 40-60 MG/DL........................................AVERAGE LESS THAN 40 MG/DL...............................INCREASED TRIGLYCERIDE LEVEL..................CLINICAL INTERPRETATION LESS THAN 150 MG/DL...............................DESIRABLE 150-199 MG/DL...............................BORDERLINE HIGH 200-499 MG/DL..........................................HIGH GREATER THAN 500..................................VERY HIGH THE NATIONAL CHOLESTEROL EDUCATION PROGRAM HAS SET THE ABOVE GUIDELINES (REFERANCE VALUES) FOR CHOLESTEROL AND HDL. RISK ASSOCIATED WITH CHOLESTEROL/HDL RATIOS RISK....................MALE RATIO.............FEMALE RATIO 1/2 AVERAGE.................<3.4.......................<3.3 LOW RISK.................... 4.0 ...................... 3.8 AVERAGE..................... 5.0 ...................... 4.5 2X AVERAGE.................. 9.5 ...................... 7.0 3X AVERAGE...................>23........................>11 Elle Quiroz MD LAB - CHEMISTRY ORDERABLES Rose l Result Performing Organization Address City/State/[facility] de Phone Number [facility] [address] from Last 3 Months or Most Recently Relevant to Health Maintenance Additional Health Concerns Infection Onset Date Last Indicated MRSA Comment:+ cx abscess 02/03/18: + nasal pcr 10/05/18 02/03/20182018 Insurance MEDICAID AETNA [facility] [place] [employer] [facility] [place] [facility] Advance Directives * Full Code (Latest Code Status on File) Date Activated Date Inactivated Comments 12/21/2024 9:02 PM 12/26/2024 4:45 PM * Full Code Date Activated Date Inactivated Comments 12/21/2024 8:51 PM 12/21/2024 9:02 PM * Full Code Date Activated Date Inactivated Comments 10/04/2018 7:55 PM 10/08/2018 11:06 AM * Full Code Date Activated Date Inactivated Comments 10/04/2018 7:55 PM 10/04/2018 7:55 PM * Full Code Date Activated Date Inactivated Comments 08/28/2018 2:44 PM 08/29/2018 2:17 PM Care Teams Claim Administrator Relationship Specialty Start Date End Date Angelita Rodriguez [facility] PCP - General
--- OUTSIDE RECORDS SUMMARY | 2025-01-06 22:23 | XMS_ITS | Encounter Summary ---
Author Organization [facility] Address [address] [place] [address] Care Team Providers Care Wool Brusher Name Role Phone Kinsey Conley MD Primary Care Provider Pcp, Angelita Espinosa Primary [facility] Primar y Care Provider Unavailable Breana Begum Unavailable [phone] Monet Fry RN Unavailable [phone] Heidi Daniels RN Unavailable [phone] Encounter Details Date Type Department Care Team (Late st Contact Info) Description 04/13/2022 Telephone [facility] - Surgery [address] [facility] [address] [place] [address] Brook Chopra MD [address] [place] [address] Social History Tobacco Use Types Packs/Day Years Used Date Smoking Tobacco: Every Day Cigarettes 1 25 Smokeless Tobacco: Never Comments:2 cigarettes daily - wants to quit Alcohol Use Standard Drinks/Week Comments Not Currently 0 (1 standard drink = 0.6 oz pur e alcohol) AUDIT-C Answer Date Recorded Q1: How often do you have a drink containing alc ohol? Never 11/15/2021 Q2: How many drinks containi ng alcohol do you have on a typical day when you are drinking? Patient declined 11/15/2021 Q3: How often do you have si x or more drinks on one occasion? Never 11/15/2021 PHQ-2 Answer Date Recorded PHQ2 TOTAL SCORE 0 03/09/2022 Sex and Gender Information Value Date Recorded Sex Assigned at Not on file Legal Sex Male 11:23 AM MANAGEMENT CONSULTING Gender Identity Not on file Sexual Orientation Not on file documented as of this encounter Functional Status * Is person deaf or have serious hearing difficulty? Answer Date of Assessment Author No 10/08/2018 9:47 AM CDT [address], Stephy L, EMPLOYEE WELFARE MANAGER-[employer] * Is person blind or have serious difficulty seeing? Answer Date of Assessment Author No 10/08/2018 9:47 AM CDT [address], Stephy L, EMPLOYEE WELFARE MANAGER-[employer] * Does person have serious difficulty walking/climbing stairs? Answer Date of Assessment Author No 10/08/2018 9:47 AM CDT [address], Stephy L, EMPLOYEE WELFARE MANAGER-[employer] * Does person have difficulty dressing/bathing? Answer Date of Assessment Author No 10/08/2018 9:47 AM CDT [address], Stephy L, EMPLOYEE WELFARE MANAGER-[employer] * Does person have difficulty doing errands alone? Answer Date of Assessment Author No 10/08/2018 9:47 AM CDT [address], Stephy L, EMPLOYEE WELFARE MANAGER-[employer] documented as of this encounter Mental Status * Does person have difficulty concentrating/remembering/making decisions? Answer Entry Date Author No 10/08/2018 9:47 AM CDT [address], Stephy L, EMPLOYEE WELFARE MANAGER-[employer]ER documented in this encounter Miscellaneous Notes * Telephone Encounter - Jacob Angeles - 04/13/2022 2:17 PM CDT [facility] called and said they couldn't reach the PT about Surgery tomorrow. They asked me totry to reach the PT. I called and left a VM to call Dr. Mi's office back. documented in this encounter Plan of Treatment Not on file documented as of this encounter Visit Diagnoses Not on filedocumented in this encounter Additional Health Concerns Infection Onset Date Last Indicated Resolved Time MRSA Comment:+ cx abscess 02/03/18: + nasal pcr 10/05/18 02/03/2018 10/05/2018 documented as of this encounter Care Teams Wool Brusher Relationship Specialty Start Date End Date Kinsey Conley MD [address] [place] [address] PCP - General Internal Medicine 12/01/21 05/30/23 [facility]cp[facility]ita [facility] PCP - General 05/31/23 Breana Begum Care Coordination Specialist Care Management 02/26/24 02/28/24 Monet Fry RN Retaining Room [facility] Coordinator 12/27/24 12/27/24 Heidi Daniels, ELOISA [address] [place] [address] Retaining Room [facility] Coordinator 12/27/24 12/27/24 documented as of this encounter
--- OUTSIDE RECORDS SUMMARY | 2025-01-06 22:23 | XMS_ITS | Patient Health Record ---
Author Organization Count includes the [facility] Address [address] [place] [address] Care Team Providers Care Director Work Name Role Phone Hetal Degroot Primary Care Provider Lima Lilly Unavailable [phone] Allergies No Known Allergies Results Component Value Reference Range Notes QuantiFERON-TB Gold Plus ([id number]) Reviewed date:09/02/2024 11:30:04 AM Interpretation:Negative Performing Lab: Notes/Report: Negative Reason For Referral No Information Medications Medication SIG (Take, Route, Fr equency, Duration) Notes Start Date End Date Status hydrOXYzine HCl 25 MG 2 tabs by mouth ev fabian 6 hrs as needed Orally Active Multivitamin - 1 tablet Orally Once a day Active ARIPiprazole 5 MG 1 tablet at bedtime Orally Once a day Active FLUoxetine HCl 20 MG 1 capsule Orally Once a day Active Social History Tobacco Use: Social History Observation Description Date Details (start date - stop date) Never Smoker NA - NA Tobacco Control (Standard) Question Answer Notes Tobacco use: Nonsmoker Problems Problem Type SNOMED Code ICD Code Onset Dates Problem Status W/U Status Risk Notes Problem Attention deficit hyperactivity disorder (778345979) ADHD (attention deficit hyperactivity disorder) (F90.9) Active confirmed Problem Generalized anxiety disorder (71563420) CHARISMA (generalized anxiety disorder) (F41.1) Active confirmed Problem Bipolar 2 disorder (29793733) Bipolar 2 disorder (F31.81) Active confirmed Problem Ethanol abuse (32279794) ETOH abuse (F10.10) Active confirmed Vital Signs Heart Rate 86 /min 08/05/2024 Respiratory Rate 16 /min 08/05/2024 Blood pressure diastolic 70 mm Hg 08/05/2024 Oximetry 98 % 08/05/2024 Height 71 in 08/05/2024 Blood pressure systolic 122 mm Hg 08/05/2024 Weight 180 lbs 08/05/2024 BMI 25.1 kg/m2 08/05/2024 Encounters Encounter Location Date Provider Diagnosis [facility] [place] [address] 08/05/2024 Hetal Degroot ETOH abuse F10.10 ; Adult general medical exam Z00.00 and Nutritional counseling Z71.3 [facility] [address] [address] 08/07/2024 Lima Lilly Bipolar 2 disorder F31.81 ; CHARISMA (generalized anxiety disorder) F41.1 ; ADHD (attention deficit hyperactivity disorder) F90.9 ; Therapeutic drug monitoring Z51.81 and Screening for deficiency anemia Z13.0 Assessments Encounter Date Diagnosis (ICD Code) Assessment Notes Treatment Notes Treatment Clinical Notes Section Notes 08/07/2024 CHARISMA (generalized anxiety disorder) (ICD-10 - F41.1) Continue Hydroxyzine. Take as prescribed. Reviewed purpose (reduce anxiety and/or promote sleep), benefits, and risks - including sedation and dry mouth. Call for problems with medication, side effects or need for dosage change. 08/07/2024 Bipolar 2 disorder (ICD-10 - F31.81) Continue Fluoxetine. Antidepressant education - reviewed side effects which may include increased risk of suicide, anxiety, sleep disturbance, nausea, dry mouth, increased bruising, sexual dysfunction, sachin, wt gain, and serotonin syndrome. Call for problems with medication, side effects or need for dosage change Continue Aripiprazole. Take as prescribed. Reviewed purpose (mood stability), benefits, and risks - low blood pressure, metabolic syndrome with high cholesterol or high blood sugars, change in cardiac conduction, nausea, vomiting, temporary or permanent movement disorders, and akathisia. Call for problems with medication, side effects or need for dosage change. 08/05/2024 ETOH abuse (ICD-10 - F10.10) 08/05/2024 Adult general medical exam (ICD-10 - Z00.00) 08/07/2024 ADHD (attention deficit hyperactivity disorder) (ICD-10 - F90.9) 08/05/2024 Nutritional counseling (ICD-10 - Z71.3) 08/07/2024 Therapeutic drug monitoring (ICD-10 - Z51.81) 08/07/2024 Screening for deficiency anemia (ICD-10 - Z13.0) 08/05/2024 Other Continue treatment as recommended by [facility] staff. Encouraged patient to obtain routine medical care with patient's own primary care provider or establish as a patient at [facility] if no current primary care provider. 08/07/2024 Other May self-administer medications or be administered own oral medications per [facility] protocols. Provided informed consent with understanding of side effects, adverse effects, risks and benefits as well as alternative treatments as previously discussed and with the above recommended medications & other aspects of the treatment program. Agrees to return sooner if symptoms worsen or suicidal or homicidal ideations occur. Unable to complete full AIMS due to nature of appt, denies any irregular muscle movements or facial tics; no irregular movements observed during Zoom appt. Plan: -Continue Fluoxetine HCl 20 mg once daily -Continue Aripiprazole 5 mg QHS -Continue Hydroxyzine HCl 25 mg 2 tabs q6hrs PRN *Labs ordered -Follow up: 2 weeks [] Hard Rx handed to patient [] Rx phoned into pharmacy [] Rx faxed/e-prescribed into pharmacy [x] PDMP Reviewed [] [facility] Reviewed Encouraged by [facility] SHELLEYP-BC to: [] consider utilizing therapist/counselor /social contact worker/psychologist , referral given [x] continue with therapist/counselor /social contact worker/psychologist Psychoeducation: -Treatment options discussed in detail with patient/guardian verbalizing understanding of treatment rationales. -Side effects and benefits of all medications prescribed discussed at length between psychiatric prescribing provider and patient/guardian along with the risks associated of ucmd-ft-viom interactions, including but not limited to prescription medications, OTC medications, vitamins, minerals and herbal supplements. -Patient/Guardian and provider dialogue showcased verbalized understanding from patient on rationales of medication risk vs benefits. -Information with neurobiology of presenting neurotransmitter disorder, mood stability, sleep hygiene and 7-8 hours of uninterrupted sleep per night with wakeful and refreshed awakening and day long alertness discussed. -Reduction of stress and anxiety to aid in focus and concentration discussed, again, with patient/guardian physically nodding, voicing understanding, and engaged in treatment plan with [facility] SHELLEYP-BC. -Perceiving complete understanding of rationale by patient/guardian and willingness to adhere to formulated plan of care by prescriber with patient/guardian buy-in, willingness to participate actively in plan of care and willing to take charge of own care. -Although geared for female patients, all patients/guardians are informed by prescribing provider of risks of medications that could potentially be taken by female/women within their [place] of influence and that women who use medicine during have a higher chance of having a baby with defects. -Patient/Guardian denies being and/or knowing of women who are at present and denies wanting to become in the foreseeable future, 0-6 months from now. -Patient/Guardian again informed of the risk of pharmaceutical medications consumed during and how there are potential negative effects on the developing fetus. -Patient/Guardian verbalizes understanding of rationale and physically nods head in agreement that if a should occur, to consult with provider, FINANCIAL AGENT and/or Nurse Prescriptionist to determine if prescribed medications should or should not be continued. -Instructions regarding both the medical/pharmacolog ical and non-pharmacologic aspects of the treatments employed were given, and the patient/guardian seemed to understand this. Risks and benefits of treatment, and of non-treatment, were also discussed. The patient/guardian understands the more frequent side effects associated with the medications. -The use of psychotherapy was addressed today and will continue on an as needed basis for the foreseeable future. The choice is, of course, ultimately left to the patient/guardian. -Patient/Guardian was encouraged to make a follow-up appointment for the next visit. -Additional treatment was discussed and has been addressed on an ongoing basis within the context of this patient's illness, resources, progress, and other appropriate factors. Being compliant with a regular exercise routine, consistent medication use, ongoing psychotherapy, eating and sleeping well, as well as the importance of handling stress, was discussed. Plan Of Treatment No Information Medical (General) History Hospitalization History Reason Date(Month/Year) detox 07/2024
--- NOTE | 2025-01-06 22:46 | ED.ALCOHOL ---
HPI - Alcohol General Chief Complaint: Alcohol <Lorena Rivera PA-C - Last Filed: 01/07/25 02:35> Stated Complaint: ETOH+, AMS, <Lorena Rivera PA-C - Last Filed: 01/07/25 02:35> Time Seen by Provider: 01/07/25 03:14 <Lorena Rivera PA-C - Last Filed: 01/07/25 02:35> Source: patient and EMS <Lorena Rivera PA-C - Last Filed: 01/07/25 02:35> Mode of arrival: EMS <Lorena Rivera PA-C - Last Filed: 01/07/25 02:35> Limitations: intoxication <Lorena Rivera PA-C - Last Filed: 01/07/25 02:35> History of Present Illness HPI narrative: Patient is a 44 y/o male who presents to the ED via EMS with report of alcohol intoxication. Per EMS, patient was found in someone's front yard, knocking on people's doors, speaking gibberish. Talking about fentanyl users. Slightly intoxicated. Patient does admit to drinking alcohol today. Unable to tell me how much. He does deny daily alcohol use. He denies SI, HI currently. A&OX4, denies pain. <Lorena Rivera PA-C - Last Filed: 01/07/25 02:35> Related Data Allergies/Adverse Reactions: Allergies Allergy/AdvReac Type Severity Reaction Status Date / Time No Known Allergies Allergy Verified 01/06/25 22:06 <Lorena Rivera PA-C - Last Filed: 01/07/25 02:35> Review of Systems Review of Systems: ROS unobtainable: Yes unobtainable due to mental status <Lorena Rivera PA-C - Last Filed: 01/07/25 02:35> [facility] Social History Social History: Social History Substance use type: does not use <Lorena Rivera PA-C - Last Filed: 01/07/25 02:35> Exam Narrative: GENERAL: Disheveled, unkempt, intoxicated appearing, in no acute distress. HEAD: Normocephalic, atraumatic. RESPIRATORY: Airway patent, respirations nonlabored. CARDIOVASCULAR: Regular rate and rhythm MUSCULOSKELETAL: Moves all extremities. No gross deformities. SKIN: Warm, dry, normal color. NEURO: A&O X4. Speech clear. Able to answer all questions and move all extremities. No ataxic movements. PSYCHIATRIC: Intoxicated. Normal interaction. <Lorena Rivera PA-C - Last Filed: 01/07/25 02:35> Course MANUFACTURING TECHNOLOGY ANALYST/PA Physician Supervision For this patient encounter, I reviewed the MANUFACTURING TECHNOLOGY ANALYST or PA documentation, treatment plan, and medical decision making and had [id number] time with this patient. I performed all aspects of the MDM as documented. <Jesús Griffin MD - Last Filed: 01/07/25 04:24> Vital Signs Vital signs: Vital Signs Temperature 98.2 F 01/06/25 21:57 Pulse Rate 84 01/06/25 21:57 Respiratory Rate 12 01/06/25 21:57 Blood Pressure 118/74 01/06/25 21:57 Pulse Oximetry 97 01/06/25 21:57 Oxygen Delivery Room Air 01/06/25 21:57 Temperature 98.2 F 01/06/25 21:57 Pulse Rate 74 01/07/25 03:46 Respiratory Rate 20 01/07/25 03:46 Blood Pressure 107/66 01/07/25 03:46 Pulse Oximetry 98 01/07/25 03:46 Oxygen Delivery Room Air 01/06/25 21:57 <Lorena Rivera PA-C - Last Filed: 01/07/25 02:35> Vital Signs Temperature 98.2 F 01/06/25 21:57 Pulse Rate 84 01/06/25 21:57 Respiratory Rate 12 01/06/25 21:57 Blood Pressure 118/74 01/06/25 21:57 Pulse Oximetry 97 01/06/25 21:57 Oxygen Delivery Room Air 01/06/25 21:57 Temperature 98.2 F 01/06/25 21:57 Pulse Rate 74 01/07/25 03:46 Respiratory Rate 20 01/07/25 03:46 Blood Pressure 107/66 01/07/25 03:46 Pulse Oximetry 98 01/07/25 03:46 Oxygen Delivery Room Air 01/06/25 21:57 <Jesús Griffin MD - Last Filed: 01/07/25 04:24> MDM - Alcohol MDM Narrative Medical decision making narrative: Patient presented to ED via EMS with concern for alcohol intoxication. Patient alert oriented x4 upon my evaluation, able to answer my questions. Does admit to drinking alcohol. Denies any pain, acute concerns, SI/HI. Will obtain psychiatric clearance labs. ETOH 180 CT brain negative UDS positive for cannabinoids and benzodiazepines. Patient resting comfortably on re-evaluation, sleeping, eating. Care signed out to Dr. Griffin at shift change pending clinical sobriety and safe disposition. <Lorena Rivera PA-C - Last Filed: 01/07/25 02:35> Patient presented to ED via EMS with concern for alcohol intoxication. Patient alert oriented x4 upon my evaluation, able to answer my questions. Does admit to drinking alcohol. Denies any pain, acute concerns, SI/HI. Will obtain psychiatric clearance labs. ETOH 180 CT brain negative UDS positive for cannabinoids and benzodiazepines. Patient resting comfortably on re-evaluation, sleeping, eating. Care signed out to Dr. Griffin at shift change pending clinical sobriety and safe disposition. Patient signed out to me pending clinical sobriety. Repeat ethanol level noted to be 86. Patient instructed to follow-up with his primary care physician within the next 3-5 days and return to the ED if any new or worsening symptoms develop. Provided strict return precautions. Discharged in stable condition. <Jesús Griffin MD - Last Filed: 01/07/25 04:24> Medical Records Attestation: I reviewed the patient's medical records. <Lorena Rivera PA-C - Last Filed: 01/07/25 02:35> Lab Data Attestation: I reviewed the patient's lab results. <Lorena Rivera PA-C - Last Filed: 01/07/25 02:35> Result diagrams: 01/06/25 23:15 01/06/25 23:15 <Lorena Rivera PA-C - Last Filed: 01/07/25 02:35> Labs: Lab Results 01/06/25 01/06/25 Range/Units 23:15 23:15 WBC 5.9 (4.5-10.0) K/mm3 RBC 5.09 (4.6-6.20) M/mm3 Hgb 14.2 (14.0-18.0) g/dL Hct 44.5 (42.0-52.0) % MCV 87.4 (80-100) fl MCH 27.9 (26-34) pg MCHC 31.9 L (32-36) g/dl RDW 13.5 (11.5-14.5) % Plt Count 185 (150-375) k/mm3 MPV 9.6 (7.4-10.4) fl Immature Gran % (Auto) 0.2 (0-0.5) % Neut % (Auto) 54.7 (45.5-73.1) % Lymph % (Auto) 35.9 (18.3-44.2) % Alexander % (Auto) 6.8 (2.6-8.5) % Eos % (Auto) 2.2 (0-4.4) % Baso % (Auto) 0.2 (0.2-1.2) % Lymph # (Auto) 2.11 (0.9-3.2) K/mm3 Alexander # (Auto) 0.4 (0.1-0.6) K/mm3 Eos # (Auto) 0.1 (0-0.3) K/mm3 Baso # (Auto) 0.0 (0.0-0.1) K/mm3 Abs Immat Gran (auto) 0.01 (0.00-0.031) K/mm3 Absolute Neuts (auto) 3.2 (1.3-6.7) K/mm3 Absolute Nucleated RBC 0.000 (0.0-0.012) K/mm3 Nucleated RBC % 0.0 (0.0-0.2) % Sodium 146 H (137-145) mmol/L Potassium 3.8 (3.4-5.0) mmol/L Chloride 107 (98-107) mmol/L Carbon Dioxide 24 (22-30) mmol/L Anion Gap 15 H (4-12) mmol/L BUN 11 D (9-20) mg/dL Creatinine 0.66 L (0.7-1.3) mg/dL Estim Creat Clear Calc 126 ml/min Estimated GFR > 60 (59 - ) Glucose 91 (65-110) mg/dL Calcium 9.0 (8.4-10.2) mg/dL Total Bilirubin 0.3 (0.2-1.3) mg/dL AST 55 (17-59) U/L ALT 35 (6-50) U/L Alkaline Phosphatase 65 (38-126) U/L Total Protein 7.7 (6.3-8.2) g/dL Albumin 4.5 (3.5-5.1) g/dL TSH 1.580 (0.465-4.680) uIU/mL Urine Color Yellow (Yellow) Urine Appearance Clear (Clear) Urine pH 5.5 (5.0-9.0) Ur Specific [place] 1.008 (1.001-1.035) Urine Protein Negative (Negative) mg/dL Urine Glucose (UA) Negative (Negative) mg/dL Urine Ketones Negative (Negative) mg/dL Ur Blood (Man) Negative (Negative) Urine Nitrate Negative (Negative) Urine Bilirubin Negative (Negative) Urine Urobilinogen 0.2 (<2.0) mg/dL Leukocyte Esterase Rfl Negative (Negative) CLIFFORD/UL Salicylates < 1.0 L (2-20) mg/dL Urine Opiates Screen Negative (Negative) Urine Methadone Screen Negative (Negative) Acetaminophen < 10 L (10-30) ug/mL Ur Barbiturates Screen Negative (Negative) Ur Phencyclidine Scrn Negative (Negative) Ur Amphetamine Screen Negative (Negative) U Benzodiazepines Scrn Positive A (Negative) Urine Cocaine Screen Negative (Negative) U Cannabinoids Screen Positive A (Negative) Ethyl Alcohol 180 86 (<10) mg/dL SARS-CoV-2 RNA (RT-PCR) Negative (Negative) <Lorena Rivera PA-C - Last Filed: 01/07/25 02:35> Lab Results 01/06/25 01/06/25 Range/Units 23:15 23:15 WBC 5.9 (4.5-10.0) K/mm3 RBC 5.09 (4.6-6.20) M/mm3 Hgb 14.2 (14.0-18.0) g/dL Hct 44.5 (42.0-52.0) % MCV 87.4 (80-100) fl MCH 27.9 (26-34) pg MCHC 31.9 L (32-36) g/dl RDW 13.5 (11.5-14.5) % Plt Count 185 (150-375) k/mm3 MPV 9.6 (7.4-10.4) fl Immature Gran % (Auto) 0.2 (0-0.5) % Neut % (Auto) 54.7 (45.5-73.1) % Lymph % (Auto) 35.9 (18.3-44.2) % Alexander % (Auto) 6.8 (2.6-8.5) % Eos % (Auto) 2.2 (0-4.4) % Baso % (Auto) 0.2 (0.2-1.2) % Lymph # (Auto) 2.11 (0.9-3.2) K/mm3 Alexander # (Auto) 0.4 (0.1-0.6) K/mm3 Eos # (Auto) 0.1 (0-0.3) K/mm3 Baso # (Auto) 0.0 (0.0-0.1) K/mm3 Abs Immat Gran (auto) 0.01 (0.00-0.031) K/mm3 Absolute Neuts (auto) 3.2 (1.3-6.7) K/mm3 Absolute Nucleated RBC 0.000 (0.0-0.012) K/mm3 Nucleated RBC % 0.0 (0.0-0.2) % Sodium 146 H (137-145) mmol/L Potassium 3.8 (3.4-5.0) mmol/L Chloride 107 (98-107) mmol/L Carbon Dioxide 24 (22-30) mmol/L Anion Gap 15 H (4-12) mmol/L BUN 11 D (9-20) mg/dL Creatinine 0.66 L (0.7-1.3) mg/dL Estim Creat Clear Calc 126 ml/min Estimated GFR > 60 (59 - ) Glucose 91 (65-110) mg/dL Calcium 9.0 (8.4-10.2) mg/dL Total Bilirubin 0.3 (0.2-1.3) mg/dL AST 55 (17-59) U/L ALT 35 (6-50) U/L Alkaline Phosphatase 65 (38-126) U/L Total Protein 7.7 (6.3-8.2) g/dL Albumin 4.5 (3.5-5.1) g/dL TSH 1.580 (0.465-4.680) uIU/mL Urine Color Yellow (Yellow) Urine Appearance Clear (Clear) Urine pH 5.5 (5.0-9.0) Ur Specific [place] 1.008 (1.001-1.035) Urine Protein Negative (Negative) mg/dL Urine Glucose (UA) Negative (Negative) mg/dL Urine Ketones Negative (Negative) mg/dL Ur Blood (Man) Negative (Negative) Urine Nitrate Negative (Negative) Urine Bilirubin Negative (Negative) Urine Urobilinogen 0.2 (<2.0) mg/dL Leukocyte Esterase Rfl Negative (Negative) CLIFFORD/UL Salicylates < 1.0 L (2-20) mg/dL Urine Opiates Screen Negative (Negative) Urine Methadone Screen Negative (Negative) Acetaminophen < 10 L (10-30) ug/mL Ur Barbiturates Screen Negative (Negative) Ur Phencyclidine Scrn Negative (Negative) Ur Amphetamine Screen Negative (Negative) U Benzodiazepines Scrn Positive A (Negative) Urine Cocaine Screen Negative (Negative) U Cannabinoids Screen Positive A (Negative) Ethyl Alcohol 180 86 (<10) mg/dL SARS-CoV-2 RNA (RT-PCR) Negative (Negative) <Jesús Griffin MD - Last Filed: 01/07/25 04:24> Imaging Data Attestation: I personally reviewed and interpreted this imaging study as follows: <Lorena Rivera PA-C - Last Filed: 01/07/25 02:35> Radiologist's impression: STAT RAD CT brain: No acute intracranial hemorrhage. No midline shift or mass effect. The territory of hutchins-white matter differentiation is maintained throughout. The ventricles and sulci are commensurate with age. <Lorena Rivera PA-C - Last Filed: 01/07/25 02:35> Discharge Plan Discharge Clinical Impression: Alcoholic intoxication <FELI Rutledge Last Filed: 01/07/25 02:35> Patient Disposition: Home <Lorena Rivera PA-C - Last Filed: 01/07/25 02:35> Condition: Stable <FELI Rutledge Last Filed: 01/07/25 02:35> Instructions: Antibiotic Form, Alcohol Intoxication (ED) <Lorena Rivera PA-C - Last Filed: 01/07/25 02:35> Additional Instructions: Please follow-up with your family doctor within the next 3-5 days. Return to the ED if any new or worsening symptoms develop. <Lorena Rivera PA-C - Last Filed: 01/07/25 02:35> Patient Language: Occitan <Lorena Rivera PA-C - Last Filed: 01/07/25 02:35> Follow-up/Referrals: Ruben,Jacqueline Bennett MD [Primary Care Provider] - 3 Days <Lorena Rivera PA-C - Last Filed: 01/07/25 02:35> Time of Disposition: 04:01 <Lorena Rivera PA-C - Last Filed: 01/07/25 02:35> 04:01 <Jesús Griffin MD - Last Filed: 01/07/25 04:24>
--- NOTE | 2025-01-06 23:23 | PC.NURSE ---
pt attempted to give a urine sample. Pt is unable to at this time. Will attempt again in 5 minutes.
[2025-01-06 23:26] LABS: Hematocrit 44.5 % (42.0-52.0); Hemoglobin 14.2 g/dL (14.0-18.0); Immature Granulocyte Percent A 0.2 % (0-0.5); Lymphocytes Absolute Auto 2.11 K/mm3 (0.9-3.2); Mean Corpuscular HGB Conc 31.9 g/dl (32-36); Mean Corpuscular Hemoglobin 27.9 pg (26-34); Mean Corpuscular Volume 87.4 fl (80-100); Nucleated Red Blood Cells Absolute Auto 0.000 K/mm3 (0.0-0.012); Nucleated Red Blood Cells Perc 0.0 % (0.0-0.2); Platelet Count Result 185 k/mm3 (150-375); Red Blood Count 5.09 M/mm3 (4.6-6.20); White Blood Count 5.9 K/mm3 (4.5-10.0)
[2025-01-06 23:37] LABS: Acetaminophen < 10 ug/mL (10-30); Alanine Aminotransferase 35 U/L (6-50); Albumin Level 4.5 g/dL (3.5-5.1); Alkaline Phosphatase 65 U/L (38-126); Anion Gap 15 mmol/L (4-12); Aspartate Amino Transferase 55 U/L (17-59); Bilirubin,Total 0.3 mg/dL (0.2-1.3); Blood Urea Nitrogen 11 mg/dL (9-20); Calcium 9.0 mg/dL (8.4-10.2); Carbon Dioxide 24 mmol/L (22-30); Chloride 107 mmol/L (98-107); Estimated CRCL calculation 126 ml/min; Estimated Glomerular Filt Rate > 60; Glucose 91 mg/dL (65-110); Potassium 3.8 mmol/L (3.4-5.0); Salicylate < 1.0 mg/dL (2-20); Sodium 146 mmol/L (137-145); Total Protein 7.7 g/dL (6.3-8.2)
[2025-01-07] VITALS (7 sets, daily range): BP systolic 107–118; BP diastolic 66–71; PULSE 74–89; RESP 15–21; TEMP 36.8; O2SAT 95–99
[2025-01-07 00:03] LABS: SARS-CoV-2 RNA PCR Negative (Negative)
[2025-01-07 00:07] LABS: Thyroid Stimulating Hormone 1.580 uIU/mL (0.465-4.680)
[2025-01-07 00:41] LABS: Add Urine Microscopic? NO; Appearance Urine Clear (Clear); Glucose Urine UA Negative (Negative); Leukocyte Esterase Ur Negative LEU/UL (Negative); Nitrate Urine Negative (Negative); Specific Grav Ur 1.008 (1.001-1.035)
[2025-01-07 01:03] LABS: Cannabinoid Screen Urine Positive (Negative)
--- NOTE | 2025-01-07 01:15 | PC.NURSE ---
Pt refuses to keep pulse ox on finger.
--- NOTE | 2025-01-07 02:27 | PC.NURSE ---
Pt will not keep pulse-ox on finger.
== END 2025-01-07 04:31 | disposition home or self-care (01) ==
PROVIDERS: Physician Assistant; Emergency Provider Emergency Medicine; PCP Family Medicine
DX: F10.129 Alcohol abuse with intoxication, unspecified (principal); Y90.6 Blood alcohol level of 120-199 mg/100 ml
CPT/HCPCS: 36415; 70450; 80053; 80143; 80179; 80307; 81003; 82077; 84443; 85025; 87635; 99284